=== PATIENT | male | born 1950 | race Caucasian/White ===

== ENCOUNTER → 2020-06-19 | Outpatient (CLI) | payer MEDICARE ==
[2020-06-19 13:33] LABS: HGB 16.5 gm/dL (13.0-17.5); MCH 30.7 pg (25.0-35.0); MCHC 33.7 g/dL (31.0-37.0); MCV 91.1 fL (80.0-100.0); Mean Platelet Volume 6.6; Platelet Count 291 k/uL (150-450); RBC 5.38 m/uL (4.30-5.90); RDW 13.4 % (11.5-15.5); WBC 10.8 k/uL (3.8-10.6)
[2020-06-19 13:45] LABS: Potassium 5.9 mmol/L (3.5-5.1)
== END | disposition home or self-care (01) ==
LOC: LABPAT 11:57
PROVIDERS: ATTEND Surgery
DX: Z01.818 Encounter for other preprocedural examination (principal); C18.9 Malignant neoplasm of colon, unspecified
CPT/HCPCS: 36415; 80051; 85027; 86850; 86900; 86901; 93005

== ENCOUNTER 2020-06-26 10:36 | Inpatient (IN) | payer MEDICARE ==
[~2020-06-26 10:36] MED LIST: ACETAMINOPHEN TAB 500 MG TAB PO PRN; ALVIMOPAN 12 MG CAPSULE PO PRN; DEXAMETHASONE SOD PHOSPHATE 4 MG/ML 1 ML VIAL IV ONE; HEPARIN SODIUM,PORCINE 5,000 UNIT/ML 1 ML VIAL SQ PRN; HYDROmorphone 0.5 MG/0.5 ML SYRINGE IVP PRN; LIDOCAINE 1% (10MG/ML) FOR IV START INTRADERMA PRN; ONDANSETRON 4 MG/2 ML VIAL IVP ONE; metroNIDAZOLE-NS PMX 500 MG in SALINE 1 100ML.BAG IVPB PRN
[2020-06-26] MEDS: LACTATED RINGERS 1,000 ML IV SCH (11:47)
[2020-06-26 12:11] LABS: Prothrombin Time 10.6 sec (9.0-12.0)
[2020-06-26] MEDS ORDERED: MIDAZOLAM 2 MG/2 ML VIAL IV ONE (12:14)
--- NOTE | 2020-06-26 12:34 | P.ANPRN ---
Procedure Note - Anesthesia - Epidural/Spinal Epidural Continuous Time Out Performed: Yes Date of Procedure: 06/26/20 Procedure Start Time: 12:14 Procedure Stop Time: :21 Location of Patient: PreOp Indication: Acute Post-Operative Pain, Requested by Surgeon Sedation Type: Sedate with meaningful contact maintained Preparation: Sterile Dressing Position: Sitting Catheter: Indwelling Needle Guage: 18 Injectate: Test Dose Lidocaine1.5% w/1:200,000 epi Blood Aspirated: No Pain Paresthesia on Injection Noted: No Events: Uneventful and Well Tolerated (test dose 3cc given no adverse event noted)
[2020-06-26] MEDS ORDERED: LIDOCAINE 1% INJ 10MG/ML (20 ML MDV) ONE (13:09)
[2020-06-26] MEDS ORDERED: SUCCINYLCHOLINE CHLORIDE 100 MG/5 ML SYR IV ONE (13:09)
[2020-06-26] MEDS ORDERED: fentaNYL (PF) 50 MCG/ML 2 ML AMP ONE (13:09)
[2020-06-26] MEDS ORDERED: ROCURONIUM 10 MG/ML (10 ML VIAL) IV ONE (13:09)
[2020-06-26] MEDS ORDERED: PHENYLEPHRINE 10 MG/ML VIAL ONE (13:09)
[2020-06-26] MEDS ORDERED: MIDAZOLAM 2 MG/2 ML VIAL ONE (13:09)
[2020-06-26] MEDS ORDERED: GLYCOPYRROLATE 0.2 MG/ML 2 ML VIAL ONE (13:09)
[2020-06-26] MEDS ORDERED: PROPOFOL 10 MG/ML 20 ML VIAL IV ONE (13:09)
[2020-06-26] MEDS ORDERED: NEOSTIGMINE 1 MG/ML 10 ML VIAL ONE (13:09)
[2020-06-26] MEDS ORDERED: NALOXONE 0.4 MG/ML 1 ML VIAL IV PRN (13:46)
[2020-06-26] MEDS ORDERED: LACTATED RINGERS 1,000 ML IV ONE ×4 (13:53→15:54)
[2020-06-26] MEDS ORDERED: ONDANSETRON 4 MG/2 ML VIAL IVP PRN (16:47)
[2020-06-26] MEDS ORDERED: HYDROmorphone 1 MG/ML 1 ML SYRINGE IVP PRN (16:47)
[2020-06-26] MEDS ORDERED: METOCLOPRAMIDE 5 MG/ML 2 ML VIAL IVP PRN (16:47)
--- NOTE | 2020-06-26 16:58 | P.OP ---
Date of Procedure: 06/26/20 Procedure(s) Performed: PREOPERATIVE DIAGNOSIS: Descending colon cancer POSTOPERATIVE DIAGNOSIS: Same PROCEDURE: Partial colectomy, mobilization splenic flexure, partial omentectomy SURGEON: Veronica EBL: 50 mL ANESTHESIA: General COMPLICATIONS: None OPERATIVE PROCEDURE: Patient placed on the operative table in the supine position. The patient was placed under general anesthesia. The patient was then placed in lithotomy. The abdomen was prepped and draped in usual sterile fashion. A vertical incision was made extending from the infraumbilical location to the subxiphoid location. The fascia was divided as well. The Bookwalter retractor was utilized. There was a large mass involving the descending colon that was densely adherent to the lateral abdominal wall. We started by mobilizing the sigmoid colon proximally. The white line of Toldt was divided. The course of the left ureter was identified and preserved. Once we came closer to the mass I switched and started to mobilize the splenic flexure. The splenic flexure was fully mobilized using electrocautery and the LigaSure device. The patient's colon proximally was slightly distended. This appeared consistent with the tight nature of this malignancy when identified on endoscopy. The visualized small bowel and proximal colon appeared normal. The liver was free of any evident metastasis. As we mobilized the colon more medially we identified that the cancer itself was penetrating into the pericolonic tissues specifically the peritoneum along the left gutter. I took a portion of the peritoneum off with the mass. I used clips to identify that area in the event that future radiation therapy was considered. As we were mobil izing the bowel medially a defect in the lateral wall of the colon where the cancer was was identified. There was some spillage of bilious diarrhea in that area that was quickly evacuated. The cancer itself appeared to be perforating into the retroperitoneum at that location. He was difficult to see with the inflammatory response the course of the proximal and mid ureter but I felt that this was likely deep to the inflammatory site. Once we had mobilized the bowel fully medially the mesentery was divided using both the LigaSure device and [address]. No bleeding was seen. We had adequate length for the 2 portions of the bowel to meet end-to-end. I decided to create a end-to-end anastomosis using a EEA stapler. The EEA anvil was placed into the proximal sigmoid colon after a small colotomy was made. A 2 cm piece of the colon was then excised using a linear 75 stapler and the anvil was brought out adjacent to the staple line. A 3-0 GI silk pursestring suture was used around the anvil. I then made a colotomy in the colon 15 cm proximal to the proximal staple line. This colotomy was made longitudinally. This was later closed transversely using a TX 60 device. The TX 60 stapler line was fully imbricated using interrupted 3-0 GI silk sutures. The stapler was brought out adjacent to the staple line and the 2 portions of the bowel were connected to one another end-to-end. The stapler was tightened and subsequent fired. The anastomosis was free of any ischemic changes and there was no tension seen. A few 3-0 GI silk Lambert sutures were used to imbricate the EEA staple line. Further irrigation took place with no evidence of bleeding or spillage. The mesenteric defect was too large to close. The midline fascia was then reapproximated using 3 separate double-stranded #1 PDS sutures. The subcutaneous tissues were closed using 3-0 Vicryl sutures. The skin was then closed using elsy. Sterile dressings were then applied. DISPOSITION: Stable to recovery room
[2020-06-26] MEDS: FAMOTIDINE 20 MG/2 ML VIAL IV SCH (20:38)
[2020-06-26] MEDS: D5-0.45% NACL WITH KCL 20MEQ/L 1,000 ML IV SCH (20:38)
[2020-06-26] MEDS: HEPARIN SODIUM,PORCINE 5,000 UNIT/ML 1 ML VIAL SQ SCH (20:38)
[2020-06-27] MEDS: D5-0.45% NACL WITH KCL 20MEQ/L 1,000 ML IV SCH ×3 (04:58→19:49)
[2020-06-27 08:01] LABS: Basophils % (A) 0 %; Eosinophils % (A) 0 %; HCT 42.5 % (39.0-53.0); HGB 14.5 gm/dL (13.0-17.5); Lymphocytes # (A) 1.2 k/uL (1.0-4.8); Lymphocytes % (A) 10 %; MCH 30.7 pg (25.0-35.0); MCHC 34.1 g/dL (31.0-37.0); MCV 90.2 fL (80.0-100.0); Mean Platelet Volume 6.9; Monocytes # (A) 0.9 k/uL (0-1.0); Monocytes % (A) 8 %; Neutrophils # (A) 9.2 k/uL (1.3-7.7); Neutrophils % (A) 80 %; Platelet Count 210 k/uL (150-450); RBC 4.71 m/uL (4.30-5.90); RDW 13.3 % (11.5-15.5); WBC 11.4 k/uL (3.8-10.6)
--- NOTE | 2020-06-27 08:03 | P.PN ---
Progress Note - Text Progress Note Date: 06/27/20 [phone] Anesthesia Postop day 1 Status post partial colectomy with epidural Day 2 Patient seen and examined. Doing well without complaint. VAS 0 out of 10, 5 out of 10 with cough. No nausea vomiting or pruritus. Ropivacaine 0.1% with Dilaudid 20 mcg/mL at 6 mL an hour. Afebrile Objective: Vital signs reviewed Lungs: Good chest excursion Abdomen: Appears nondistended Other: Epidural Site Intact without induration. Dressing intact Neuro: No apparent motor block. Sensory within normal limits. Assessment: Status post partial colectomy postop day 1 Plan: Continue current care with your medical management. Anticipate reevaluation tomorrow. Heparin subcu every 12. No other anticoagulant
--- NOTE | 2020-06-27 09:32 | P.CONS ---
History of Present Illness - History of Present Illness This is a pleasant 69 years old male with past medical history of coronary a rtery disease, colon cancer, history of bladder cancers and 2013. He is a patient of Dr. Nunez at [facility] Patient had recently diagnosed with ascending colon cancer on CAT scan of the abdomen. Recent Colonoscopy was consistent with 60 cm malignant-appearing mass. Biopsy was positive for invasive a denocarcinoma. Patient underwent partial colectomy by Dr. finley yesterday. Today is postop day #1. Patient is with expected pain at the surgical site, no bowel movement or gas yet as she has recent surgery. No nausea vomiting, no fever. He has a Salamanca catheter is placed. Patient is aware of his diagnosis of cancer, I told him he needs to see a cancer doctor and oncologist and he agrees. He states that he smokes a pack that last him 3-4 days, patient is counseled to quit however he declined nicotine patch. No alcohol or illicit drugs Vitas looks stable. Recent lap one week ago showing normal sodium 141, potassium 4.4 and chloride 107, carbon dioxide 26. WBC is 10.8 K, hemoglobin normal 16.5 as well as platelets at 2091K. Review of Systems CONSTITUTIONAL: No fever, no malaise, no fatigue. HEENT: No recent visual problems or hearing problems. Denied any sore throat. CARDIOVASCULAR: No orthopnea, PND, no palpitations, no syncope. PULMONARY: No shortness of breath, no cough, no hemoptysis. GASTROINTESTINAL: No diarrhea, no nausea, no vomiting. Normoactive bowel sounds. NEUROLOGICAL: No headaches, no weakness, no numbness. HEMATOLOGICAL: Denies any bleeding or petechiae. GENITOURINARY: Denies any burning micturition, frequency, or urgency. MUSCULOSKELETAL/RHEUMATOLOGICAL: Denies any joint pain, swelling, or any muscle pain. ENDOCRINE: Denies any polyuria or polydipsia. Past Medical History Past Medical History: Coronary Artery Disease (CAD), Cancer Additional Past Medical History / Comment(s): colon CA,hx bladder CA-no radiation-chemo instilled into bladder-2012 approx History of Any Multi-Drug Resistant Organisms: None Reported Past Surgical History: Bladder Surgery, Heart Catheterization Additional Past Surgical History / Comment(s): CABG 2017-5 vessel Past Anesthesia/Blood Transfusion Reactions: No Reported Reaction Additional Past Anesthesia/Blood Transfusion Reaction / Comm: no known hx blood transfusion Smoking Status: Current every day smoker - Past Family History Mother Family Medical History: Cancer Additional Family Medical History / Comment(s): breast CA Medications and Allergies Home Medications Medication Instructions Recorded Confirmed Type Aspirin 81 mg PO DAILY 06/23/20 06/26/20 History Clopidogrel [Plavix] 75 mg PO DAILY 06/23/20 06/26/20 History Lisinopril [Prinivil] 5 mg PO QAM 06/23/20 06/26/20 History Multivitamins, Thera [Multivitamin 1 tab PO DAILY 06/23/20 06/26/20 History (formulary)] [place]-3/Dha/Epa/Fish Oil [Fish Oil 1 each PO DAILY 06/23/20 06/26/20 History 500 mg Softgel] Rosuvastatin Calcium [Crestor] 20 mg PO DAILY 06/23/20 06/26/20 History carvediloL [Coreg] 3.125 mg PO QAM 06/23/20 06/26/20 History Allergies Allergy/AdvReac Type Severity Reaction Status Date / Time No Known Allergies Allergy Verified 06/26/20 11:15 Physical Exam Vitals: Vital Signs Temp Pulse Resp BP BP Pulse Ox 06/27/20 01:59 99.1 F 101 H 20 95/61 93 L 06/26/20 21:01 97.6 F 88 16 103/66 97 06/26/20 19:58 96 06/26/20 18:00 86 18 110/50 97 06/26/20 17:30 60 16 109/59 94 L 06/26/20 17:15 86 16 108/55 99 06/26/20 17:00 88 16 115/59 99 06/26/20 16:45 97.5 F L 90 16 118/56 98 06/26/20 12:26 79 16 96/52 96 06/26/20 11:46 97.5 F L 86 16 123/66 95 Intake and Output 06/26/20 06/27/20 06/27/20 22:59 06:59 14:59 Intake Total 800 Output Total 170 650 Balance 630 -650 Intake: IV 800 Output: Urine 120 650 Estimated Blood Loss 50 -GENERAL: The patient is alert and oriented x3, not in any acute distress. Obese HEENT: Pupils are round and equally reacting to light. EOMI. No scleral icterus. No conjunctival pallor. Normocephalic, atraumatic. No pharyngeal erythema. No thyromegaly. CARDIOVASCULAR: S1 and S2 present. No murmurs, rubs, or gallops. PULMONARY: Chest is clear to auscultation, no wheezing or crackles. -ABDOMEN: Soft, nontender, nondistended, normoactive bowel sounds. No palpable organomegaly. Surgical wound with dressing is in place, midline vertical and one in the left lower quadrant. No colostomy bag. Rest of exam is deferred to surgery team MUSCULOSKELETAL: No joint swelling or deformity. EXTREMITIES: No cyanosis, clubbing, or pedal edema. NEUROLOGICAL: Gross neurological examination did not reveal any focal deficits. SKIN: No rashes. No petechiae Results CBC & Chem 7: 06/27/20 07:12 06/26/20 11:37 Assessment and Plan Assessment: Recent diagnosis of descending colon cancer, status post partial colectomy on 06/2120 Nicotine dependence Obesity with BMI of 32 History of coronary artery disease History of bladder cancer Plan: This is a pleasant 69 years old male with recent diagnosis of invasive adenocarcinoma of the descending colon status post partial colectomy. Surgery primary team Th are managing his postop care and pain management. Continue with postop care with pain management and 50 prophylaxis. Encourage incentive spirometry. Continue with gentle hydration We recommend that patient follow up with oncologist as inpatient or close outpatient follow-up, we lifted this arrangements for the primary surgical team Labs and medication were reviewed.. Continue same treatment. Continue with symptomatic treatment. Resume home medication. Monitor lytes and vitals. DVT and GI prophylaxis. Further recommendations depends on the clinical course of the patient DVT prophylaxis: Subcutaneous heparin GI Prophylaxis: Pepcid Prognosis is guarded thank you for consulting us
[2020-06-27] MEDS: HEPARIN SODIUM,PORCINE 5,000 UNIT/ML 1 ML VIAL SQ SCH ×3 (10:16→23:35)
[2020-06-27] MEDS: ALVIMOPAN 12 MG CAPSULE PO SCH ×2 (10:16→20:05)
[2020-06-27] MEDS: FAMOTIDINE 20 MG/2 ML VIAL IV SCH ×2 (10:17→20:06)
[2020-06-27 11:16] LABS: Anion Gap 3.5 mmol/L (4.00-12.00); Calcium 8.8 mg/dL (8.7-10.3); Carbon Dioxide 25.5 mmol/L (21.6-31.8); Non-African American GFR(CKD) 75.9 (60.0-200.0); Potassium 5.5 mmol/L (3.5-5.5)
[2020-06-27] MEDS: LACTATED RINGERS 1,000 ML IV SCH (11:46)
--- NOTE | 2020-06-27 12:40 | P.PN ---
<Simran Garcia - Last Filed: 06/27/20 12:27> Subjective Progress Note Date: 06/27/20 CHIEF COMPLAINT: Descending colon cancer HISTORY OF PRESENT ILLNESS: Patient is status post partial colectomy, mobilization splenic flexure and partial omentectomy for descending colon cancer. Patient is lying in bed comfortably. He reports that his pain is controlled with epidural. He does rate his pain 5 out of 10. He denies any nausea or vomiting. Denies any flatus or BM. He is afebrile. WBC 11.4 PHYSICAL EXAM: VITAL SIGNS: Reviewed. GENERAL: Well-developed in no acute distress. HEENT: No sclera icterus. Extraocular movements grossly intact. Moist buccal mucosa. Head is atraumatic, normocephalic. ABDOMEN: Soft. Nondistended. Dressing clean dry and intact. Abdominal binder in place. DEANGELO drain serosanguineous fluid NEUROLOGIC: Alert and oriented. Cranial nerves II through XII grossly intact. ASSESSMENT: 1. Descending colon cancer status post status post partial colectomy, mobilization splenic flexure and partial omentectomy PLAN: -Continue epidural for pain -Keep patient nothing by mouth -Continue IV fluids -Encouraged patient to use incentive spirometer -GI prophylaxis Pepcid and DVT prophylaxis subcu heparin Physician Perforator Operator note has been reviewed by physician. Signing provider agrees with the documented findings, assessment, and plan of care. Objective - Vital Signs Vital signs: Vital Signs Temp 98.3 F 06/27/20 11:52 Pulse 98 06/27/20 11:52 Resp 17 06/27/20 11:52 BP 126/75 06/27/20 11:52 Pulse Ox 91 L 06/27/20 11:52 Intake & Output 06/26/20 06/27/20 06/27/20 18:59 06:59 18:59 Intake Total 3950 Output Total 170 650 75 Balance 3780 -650 -75 Weight 92.7 kg Intake: IV 3950 Output: Drainage 75 Abdomen 75 Urine 120 650 Estimated Blood Loss 50 Other: Voiding Method Indwelling Catheter - Labs CBC & Chem 7: 06/27/20 07:12 06/27/20 07:12 Labs: Abnormal Lab Results - Last 24 Hours (Table) 06/27/20 06/27/20 Range/Units 07:12 07:12 WBC 11.4 H (3.8-10.6) k/uL Neutrophils # 9.2 H (1.3-7.7) k/uL Anion Gap 3.50 L (4.00-12.00) mmol/L Glucose 119 H (70-110) mg/dL <Solomon Martin - Last Filed: 06/27/20 13:55> Subjective As above. Patient doing fairly well today. Complaining of mild pain. Labs noted. Patient denies nausea or vomiting. Good urine output. DEANGELO drain serosanguineous. Continue clear liquids for now. Gradually increase activity. Keep Oley an epidural for now. Objective - Vital Signs Vital signs: Vital Signs Temp 98.3 F 06/27/20 11:52 Pulse 98 06/27/20 11:52 Resp 17 06/27/20 11:52 BP 126/75 06/27/20 11:52 Pulse Ox 91 L 06/27/20 11:52 Intake & Output 06/26/20 06/27/20 06/27/20 18:59 06:59 18:59 Intake Total 3950 240 Output Total 170 650 75 Balance 3780 -650 165 Weight 92.7 kg Intake: IV 3950 Oral 240 Output: Drainage 75 Abdomen 75 Urine 120 650 Estimated Blood Loss 50 Other: Voiding Method Indwelling Catheter - Labs CBC & Chem 7: 06/27/20 07:12 06/27/20 07:12 Labs: Abnormal Lab Results - Last 24 Hours (Table) 06/27/20 06/27/20 Range/Units 07:12 07:12 WBC 11.4 H (3.8-10.6) k/uL Neutrophils # 9.2 H (1.3-7.7) k/uL Anion Gap 3.50 L (4.00-12.00) mmol/L Glucose 119 H (70-110) mg/dL
[2020-06-27] MEDS ORDERED: ACETAMINOPHEN TAB 325 MG TAB PO PRN (20:44)
[2020-06-27] MEDS: ROPIVACAINE 250 MG, HYDROMORPHONE (PF) 5 MG in SODIUM CHLORIDE 0.9% 200 ML EPIDURAL PRN (22:46)
[2020-06-28] MEDS: D5-0.45% NACL WITH KCL 20MEQ/L 1,000 ML IV SCH ×3 (03:58→23:21)
[2020-06-28 04:54] LABS: Appearance,Urine Clear (Clear); Bilirubin,Urine Negative (Negative); Blood,Urine Negative (Negative); Color,Urine Light Yellow; Glucose,Urine (UA) Negative (Negative); Ketones,Urine Negative (Negative); Leukocyte Esterase,Urine Negative (Negative); Nitrite,Urine Negative (Negative); PH, Urine 6.5 (5.0-8.0); Protein,Urine Negative (Negative); Specific Gravity,Urine 1.005 (1.001-1.035); Urobilinogen,Urine <2.0 mg/dL (<2.0)
[2020-06-28 06:31] LABS: Basophils % (A) 0 %; Eosinophils # (A) 0.3 k/uL (0-0.7); Eosinophils % (A) 3 %; HCT 40.7 % (39.0-53.0); HGB 13.6 gm/dL (13.0-17.5); Lymphocytes # (A) 0.9 k/uL (1.0-4.8); Lymphocytes % (A) 9 %; MCH 30.3 pg (25.0-35.0); MCHC 33.5 g/dL (31.0-37.0); MCV 90.5 fL (80.0-100.0); Mean Platelet Volume 6.9; Monocytes # (A) 0.6 k/uL (0-1.0); Monocytes % (A) 6 %; Neutrophils # (A) 7.6 k/uL (1.3-7.7); Neutrophils % (A) 80 %; Platelet Count 193 k/uL (150-450); RDW 13.7 % (11.5-15.5); WBC 9.6 k/uL (3.8-10.6)
--- NOTE | 2020-06-28 07:57 | XR ---
EXAMINATION TYPE: XR chest 1V DATE OF EXAM: 06/28/2020 COMPARISON: None INDICATION: Short of breath TECHNIQUE: Single frontal view of the chest is obtained. FINDINGS: The heart size is normal. The pulmonary vasculature is normal. Some minimal infiltrate may be at the left base. Correlate for subsegmental atelectasis. Atypical pne umonia could be considered. IMPRESSION: 1. Minimal left basilar infiltrate. Correlate for Atelectasis or atypical pneumonia
[2020-06-28] MEDS: LACTATED RINGERS 1,000 ML IV SCH (09:25)
[2020-06-28] MEDS: HEPARIN SODIUM,PORCINE 5,000 UNIT/ML 1 ML VIAL SQ SCH ×3 (09:27→23:21)
[2020-06-28] MEDS: ALVIMOPAN 12 MG CAPSULE PO SCH ×2 (09:27→20:22)
[2020-06-28] MEDS: FAMOTIDINE 20 MG/2 ML VIAL IV SCH ×2 (09:27→20:21)
--- NOTE | 2020-06-28 09:44 | P.PN ---
Subjective This is a pleasant 69 years old male with past medical history of coronary artery disease, colon cancer, history of bladder cancers and 2013. He is a patient of Dr. Nunez at [facility] Patient had recently diagnosed with ascending colon cancer on CAT scan of the abdomen. Recent Colonoscopy was consistent with 60 cm malignant-appearing mass. Biopsy was positive for invasive adenocarcinoma. Patient underwent partial colectomy by Dr. finley yesterday. Today is postop day #1. Patient is with expected pain at the surgical site, no bowel movement or gas yet as she has recent surgery. No nausea vomiting, no fever. He has a Salamanca catheter is placed. Patient is aware of his diagnosis of cancer, I told him he needs to see a cancer doctor and oncologist and he agrees. He states that he smokes a pack that last him 3-4 days, patient is counseled to quit however he declined nicotine patch. No alcohol or illicit drugs Vitas looks stable. Recent lap one week ago showing normal sodium 141, potassium 4.4 and chloride 107, carbon dioxide 26. WBC is 10.8 K, hemoglobin normal 16.5 as well as platelets at 2091K. 06/28/2020 Patient is awake and alert, he has this abdominal pain, he feels himself better. However he is developing fever of 101.8, he denies any diarrhea actually he did not have bowel movement or passing gases. He has no vomiting and he is eating well. No urinary complaints and he has a Salamanca catheter. However he's been complaining of from cough and phlegm which is green in color since admission. But no chest pain. No significant breathing difficulty. CBC is stable from today, he had leukocytosis of 11.4 yesterday came back to normal at 9.6 today. UA today is negative. Chest x-ray: Minimal left basilar infiltrate. Correlate for atelectasis or atypical pneumonia Patient is already started on Rocephin. We will check a pro-consult on in, sputum culture Review of System CONSTITUTIONAL: No fever, no malaise, no fatigue. HEENT: No recent visual problems or hearing problems. Denied any sore throat. CARDIOVASCULAR: No orthopnea, PND, no palpitations, no syncope. PULMONARY: No shortness of breath, no cough, no hemoptysis. GASTROINTESTINAL: No diarrhea, no nausea, no vomiting. Normoactive bowel sounds. Active Medications Generic Name Dose Route Start Last Admin Trade Name Freq PRN Reason Stop Dose Admin Acetaminophen 650 mg 06/27/20 20:44 06/27/20 22:04 Acetaminophen Tab 325 Mg Tab PO 650 mg Q4HR PRN Administration Fever and/ or Pain Alvimopan 12 mg 06/27/20 09:00 06/28/20 09:27 Alvimopan 12 Mg Capsule PO 07/03/20 21:01 12 mg BID RAQUEL Administration Famotidine 20 mg 06/26/20 21:00 06/28/20 09:27 Famotidine 20 Mg/2 Ml Vial IV 20 mg BID RAQUEL Administration Heparin Sodium (Porcine) 5,000 unit 06/27/20 00:00 06/28/20 09:27 Heparin Sodium,Porcine 5,000 Unit/Ml 1 Ml Vial SQ 5,000 unit Q8HR RAQUEL Administration Hydromorphone HCl 1 mg 06/26/20 16:47 Hydromorphone 1 Mg/Ml 1 Ml Syringe IVP Q3HR PRN Severe Pain Lactated Ringer's 1,000 mls @ 20 mls/hr 06/26/20 06:54 06/28/20 09:25 Lactated Ringers IV Not Given .Q24H RAQUEL Ropivacaine 250 mg/ 250 mls @ 0 mls/hr 06/26/20 14:15 06/27/20 22:46 Hydromorphone HCl 5 mg/ Sodium EPIDURAL 6 mls/hr Chloride .Q0M PRN Administration Pain Control Protocol Per Protocol Potassium Chloride/Dextrose/Sod Cl 1,000 mls @ 125 mls/hr 06/26/20 18:30 06/28/20 03:58 D5%-1/2ns-Kcl 20 Meq/L Iv Solution IV 125 mls/hr .Q8H RAQUEL Administration Ceftriaxone Sodium 2 gm/ 50 mls @ 100 mls/hr 06/27/20 21:00 06/27/20 22:01 Sodium Chloride IVPB 100 mls/hr Q24H RAQUEL Administration Lidocaine HCl 0.1 ml 06/26/20 06:54 Lidocaine 1% (10mg/Ml) For Iv Start INTRADERMA PER PROTOCOL PRN IV Start Metoclopramide HCl 10 mg 06/26/20 16:47 Metoclopramide 5 Mg/Ml 2 Ml Vial IVP Q6HR PRN Nausea and Vomiting Naloxone HCl 0.2 mg 06/26/20 13:46 Naloxone 0.4 Mg/Ml 1 Ml Vial IV Q2M PRN Opioid Reversal Ondansetron HCl 4 mg 06/26/20 16:47 Ondansetron 4 Mg/2 Ml Vial IVP Q8HR PRN Nausea And Vomiting Objective - Vital Signs Vital signs: Vital Signs Temp 99.5 F 06/28/20 05:00 Pulse 88 06/28/20 05:00 Resp 20 06/28/20 05:00 BP 121/71 06/28/20 05:00 Pulse Ox 93 L 06/28/20 05:00 Intake & Output 06/27/20 06/28/20 06/28/20 18:59 06:59 18:59 Intake Total 240 450 Output Total 1335 2475 Balance -1094 Intake: Oral 240 450 Output: Drainage 135 125 Abdomen 135 125 Urine 1200 2350 Uretheral (Salamanca) 900 2000 Other: Voiding Method Indwelling Catheter Indwelling Catheter - Exam -GENERAL: The patient is alert and oriented x3, not in any acute distress. Obese HEENT: Pupils are round and equally reacting to light. EOMI. No scleral icterus. No conjunctival pallor. Normocephalic, atraumatic. No pharyngeal erythema. No thyromegaly. CARDIOVASCULAR: S1 and S2 present. No murmurs, rubs, or gallops. PULMONARY: Chest is clear to auscultation, no wheezing or crackles. -ABDOMEN: Soft, nontender, nondistended, normoactive bowel sounds. No palpable organomegaly. Surgical wound with dressing is in place, midline vertical and one in the left lower quadrant. No colostomy bag. Rest of exam is deferred to surgery team MUSCULOSKELETAL: No joint swelling or deformity. EXTREMITIES: No cyanosis, clubbing, or pedal edema. NEUROLOGICAL: Gross neurological examination did not reveal any focal deficits. SKIN: No rashes. No petechiae - Labs CBC & Chem 7: 06/28/20 05:48 06/27/20 07:12 Labs: Abnormal Lab Results - Last 24 Hours (Table) 06/27/20 06/28/20 Range/Units 07:12 05:48 Lymphocytes # 0.9 L (1.0-4.8) k/uL Anion Gap 3.50 L (4.00-12.00) mmol/L Glucose 119 H (70-110) mg/dL Assessment and Plan Assessment: Recent diagnosis of descending colon cancer, status post partial colectomy on 2120 left lower lobe pneumonia Nicotine dependence Obesity with BMI of 32 History of coronary artery disease History of bladder cancer Plan: This is a pleasant 69 years old male with recent diagnosis of invasive adenocarcinoma of the descending colon status post partial colectomy. Surgery primary team Also patient developing left pneumonia, continue with Rocephin. Check sputum culture Th are managing his postop care and pain management. Continue with postop care with pain management and 50 prophylaxis. Encourage incentive spirometry. Continue with gentle hydration We recommend that patient follow up with oncologist as inpatient or close o utpatient follow-up, we lifted this arrangements for the primary surgical team Labs and medication were reviewed.. Continue same treatment. Continue with symptomatic treatment. Resume home medication. Monitor lytes and vitals. DVT and GI prophylaxis. Further recommendations depends on the clinical course of the patient DVT prophylaxis: Subcutaneous heparin GI Prophylaxis: Pepcid Prognosis is guarded thank you for consulting us
[2020-06-28 09:56] LABS: African American GFR (CKD) 99.9 (60.0-200.0); Anion Gap 1.8 mmol/L (4.00-12.00); Calcium 8.6 mg/dL (8.7-10.3); Carbon Dioxide 22.2 mmol/L (21.6-31.8); Non-African American GFR(CKD) 86.2 (60.0-200.0); Potassium 4.2 mmol/L (3.5-5.5)
--- NOTE | 2020-06-28 11:17 | P.PN ---
Subjective Progress Note Date: 06/28/20 Principal diagnosis: Descending colon mass Patient had a fever last night. His pain however is improved. Chest x-ray shows left-sided atelectasis. White blood cell count normal. No flatus thus far. No nausea or vomiting. Epidural remains in place. Objective - Vital Signs Vital signs: Vital Signs Temp 99.5 F 06/28/20 05:00 Pulse 88 06/28/20 05:00 Resp 20 06/28/20 05:00 BP 121/71 06/28/20 05:00 Pulse Ox 93 L 06/28/20 05:00 Intake & Output 06/27/20 06/28/20 06/28/20 18:59 06:59 18:59 Intake Total 240 450 Output Total 1335 2475 40 Balance -1094 Intake: Oral 240 450 Output: Drainage 135 125 40 Abdomen 135 125 40 Urine 1200 2350 Uretheral (Salamanca) 900 2000 Other: Voiding Method Indwelling Catheter Indwelling Catheter - Exam Abdomen: Soft, nondistended, incision clean and dry, minimal tenderness, DEANGELO serosanguineous - Labs CBC & Chem 7: 06/28/20 05:48 06/28/20 05:48 Labs: Abnormal Lab Results - Last 24 Hours (Table) 06/27/20 06/28/20 06/28/20 Range/Units 07:12 05:48 05:48 Lymphocytes # 0.9 L (1.0-4.8) k/uL Chloride 113 H (96-109) mmol/L Anion Gap 3.50 L 1.80 L (4.00-12.00) mmol/L BUN/Creatinine Ratio 10.00 L (12.00-20.00) Ratio Glucose 119 H 115 H (70-110) mg/dL Calcium 8.6 L (8.7-10.3) mg/dL Procalcitonin (0.02-0.09) ng/mL 06/28/20 Range/Units 05:48 Lymphocytes # (1.0-4.8) k/uL Chloride (96-109) mmol/L Anion Gap (4.00-12.00) mmol/L BUN/Creatinine Ratio (12.00-20.00) Ratio Glucose (70-110) mg/dL Calcium (8.7-10.3) mg/dL Procalcitonin 0.64 H (0.02-0.09) ng/mL Assessment and Plan (1) Colonic mass Narrative/Plan: Patient doing fairly well. Fever likely related to atelectasis. Continue incentive spirometry. Recheck labs tomorrow. Continue clear liquids. Increase activity. Remove epidural and Salamanca tomorrow. Current Visit: Yes Status: Acute Code(s): K63.89 - OTHER SPECIFIED DISEASES OF INTESTINE SNOMED Code(s): 747407972
[2020-06-28] MEDS: ROPIVACAINE 250 MG, HYDROMORPHONE (PF) 5 MG in SODIUM CHLORIDE 0.9% 200 ML EPIDURAL PRN (20:31)
--- NOTE | 2020-06-28 20:36 | P.PN ---
Progress Note - Text 06/28/20 0453 69-year-old male status post exploratory lap, patient has an epidural catheter for postop pain control the solution running at 6 mL an hour with a VAS of 4. No complains of nausea vomiting, no complaints of sensory or motor deficit. Dressing clean dry and intact plan to continue epidural infusion
[2020-06-29] MEDS: D5-0.45% NACL WITH KCL 20MEQ/L 1,000 ML IV SCH ×3 (03:47→20:29)
[2020-06-29 06:51] LABS: Basophils % (A) 0 %; Eosinophils # (A) 0.4 k/uL (0-0.7); Eosinophils % (A) 5 %; HCT 40.5 % (39.0-53.0); HGB 13.8 gm/dL (13.0-17.5); Lymphocytes # (A) 0.9 k/uL (1.0-4.8); Lymphocytes % (A) 11 %; MCH 30.2 pg (25.0-35.0); MCV 88.9 fL (80.0-100.0); Monocytes # (A) 0.5 k/uL (0-1.0); Monocytes % (A) 6 %; Neutrophils # (A) 6.7 k/uL (1.3-7.7); Neutrophils % (A) 77 %; Platelet Count 199 k/uL (150-450); RBC 4.56 m/uL (4.30-5.90); RDW 13.2 % (11.5-15.5); WBC 8.7 k/uL (3.8-10.6)
[2020-06-29] MEDS: LACTATED RINGERS 1,000 ML IV SCH (08:34)
[2020-06-29] MEDS: HEPARIN SODIUM,PORCINE 5,000 UNIT/ML 1 ML VIAL SQ SCH ×3 (08:38→23:14)
[2020-06-29] MEDS: FAMOTIDINE 20 MG/2 ML VIAL IV SCH ×2 (08:38→20:29)
[2020-06-29] MEDS: ALVIMOPAN 12 MG CAPSULE PO SCH ×2 (08:38→20:29)
[2020-06-29 08:56] LABS: African American GFR (CKD) 99.9 (60.0-200.0); Anion Gap 7.2 mmol/L (4.00-12.00); Calcium 8.6 mg/dL (8.7-10.3); Carbon Dioxide 25.8 mmol/L (21.6-31.8); Non-African American GFR(CKD) 86.2 (60.0-200.0); Potassium 4.3 mmol/L (3.5-5.5)
--- NOTE | 2020-06-29 09:28 | P.PN ---
Subjective This is a pleasant 69 years old male with past medical history of coronary artery disease, colon cancer, history of bladder cancers and 2013. He is a patient of Dr. Nunez at [facility] Patient had recently diagnosed with ascending colon cancer on CAT scan of the abdomen. Recent Colonoscopy was consistent with 60 cm malignant-appearing mass. Biopsy was positive for invasive adenocarcinoma. Patient underwent partial colectomy by Dr. finley yesterday. Today is postop day #1. Patient is with expected pain at the surgical site, no bowel movement or gas yet as she has recent surgery. No nausea vomiting, no fever. He has a [place] catheter is placed. Patient is aware of his diagnosis of cancer, I told him he needs to see a cancer doctor and oncologist and he agrees. He states that he smokes a pack that last him 3-4 days, patient is counseled to quit however he declined nicotine patch. No alcohol or illicit drugs Vitas looks stable. Recent lap one week ago showing normal sodium 141, potassium 4.4 and chloride 107, carbon dioxide 26. WBC is 10.8 K, hemoglobin normal 16.5 as well as platelets at 2091K. 06/28/2020 Patient is awake and alert, he has this abdominal pain, he feels himself better. However he is developing fever of 101.8, he denies any diarrhea actually he did not have bowel movement or passing gases. He has no vomiting and he is eating well. No urinary complaints and he has a [place] catheter. However he's been complaining of from cough and phlegm which is green in color since admission. But no chest pain. No significant breathing difficulty. CBC is stable from today, he had leukocytosis of 11.4 yesterday came back to normal at 9.6 today. UA today is negative. Chest x-ray: Minimal left basilar infiltrate. Correlate for atelectasis or atypical pneumonia Patient is already started on Rocephin. We will check a pro-consult on in, sputum culture 06/29/2020 This is a pleasant 69 years old male who presents with ascending colon cancer status post partial colectomy. Postoperatively patient was developing fever with chest x-ray was suspicious for left lower lobe pneumonia. Patient was started on ceftriaxone as it was treated for community-acquired pneumonia because the fever hepatorrhaphy the second day of admission. Today patient feeling better, no dyspnea. He still have wet scuffing but his follow his phlegm. No chest pain. He did not have bowel movement or passed gas yet. But his abdominal pain looks controlled and his abdomen less distended, he tolerates his diet with no nausea vomiting. Possible discontinuation of the Salamanca catheter today, we will recommend to check a bladder scan after discontinuing it Objective - Vital Signs Vital signs: Vital Signs Temp 98.3 F 06/29/20 05:00 Pulse 80 06/29/20 05:00 Resp 18 06/29/20 05:00 BP 136/67 06/29/20 05:00 Pulse Ox 96 06/29/20 05:00 Intake & Output 06/28/20 06/29/20 06/29/20 18:59 06:59 18:59 Intake Total 1000 130.5 Output Total 1730 3620 Balance -730 -3489.5 Intake: Intake, IV Titration 1000 130.5 Amount D5-0.45% NaCl with KCl 1000 20Meq/l 1,000 ml @ 125 mls/hr IV .Q8H [facility] Rx#: [id number] Ropivacaine 250 mg 130.5 Hydromorphone (Pf) 5 mg In Sodium Chloride 0.9% 200 ml @ Per Protocol EPIDURAL .Q0M PRN Rx#: [id number] Output: Drainage 130 170 Abdomen 130 170 Urine 1600 3450 Uretheral (Salamanca) 400 1725 Other: Voiding Method Indwelling Catheter - Exam -GENERAL: The patient is alert and oriented x3, not in any acute distress. Obese HEENT: Pupils are round and equally reacting to light. EOMI. No scleral icterus. No conjunctival pallor. Normocephalic, atraumatic. No pharyngeal erythema. No thyromegaly. CARDIOVASCULAR: S1 and S2 present. No murmurs, rubs, or gallops. PULMONARY: Chest is clear to auscultation, no wheezing or crackles. -ABDOMEN: Soft, nontender, nondistended, normoactive bowel sounds. No palpable organomegaly. Surgical wound with dressing is in place, midline vertical and one in the left lower quadrant. No colostomy bag. Rest of exam is deferred to surgery team MUSCULOSKELETAL: No joint swelling or deformity. EXTREMITIES: No cyanosis, clubbing, or pedal edema. NEUROLOGICAL: Gross neurological examination did not reveal any focal deficits. SKIN: No rashes. No petechiae - Labs CBC & Chem 7: 06/29/20 06:25 06/29/20 06:25 Labs: Abnormal Lab Results - Last 24 Hours (Table) 06/28/20 06/28/20 06/29/20 Range/Units 05:48 05:48 06:25 Lymphocytes # 0.9 L (1.0-4.8) k/uL Chloride 113 H (96-109) mmol/L Anion Gap 1.80 L (4.00-12.00) mmol/L BUN/Creatinine Ratio 10.00 L (12.00-20.00) Ratio Glucose 115 H (70-110) mg/dL Calcium 8.6 L (8.7-10.3) mg/dL Procalcitonin 0.64 H (0.02-0.09) ng/mL 06/29/20 Range/Units 06:25 Lymphocytes # (1.0-4.8) k/uL Chloride (96-109) mmol/L Anion Gap (4.00-12.00) mmol/L BUN/Creatinine Ratio 10.00 L (12.00-20.00) Ratio Glucose 116 H (70-110) mg/dL Calcium 8.6 L (8.7-10.3) mg/dL Procalcitonin (0.02-0.09) ng/mL Microbiology - Last 24 Hours (Table) 06/27/20 21:34 Blood Culture - Preliminary Blood No Growth after 24 hours 06/27/20 21:20 Blood Culture - Preliminary Blood No Growth after 24 hours Assessment and Plan Assessment: Recent diagnosis of descending colon cancer, status post partial colectomy on 06/2120 left lower lobe pneumonia Nicotine dependence Obesity with BMI of 32 History of coronary artery disease History of bladder cancer Plan: This is a pleasant 69 years old male with recent diagnosis of invasive adenocarcinoma of the descending colon status post partial colectomy. Surgery primary team Also patient developing left pneumonia, continue with Rocephin. Check sputum culture. Check bladder scan Th are managing his postop care and pain management. Continue with postop care with pain management and 50 prophylaxis. Encourage incentive spirometry. Continue with gentle hydration We recommend that patient follow up with oncologist as inpatient or close outp atient follow-up, we lifted this arrangements for the primary surgical team Labs and medication were reviewed.. Continue same treatment. Continue with symptomatic treatment. Resume home medication. Monitor lytes and vitals. DVT and GI prophylaxis. Further recommendations depends on the clinical course of the patient DVT prophylaxis: Subcutaneous heparin GI Prophylaxis: Pepcid Prognosis is guarded thank you for consulting us
--- NOTE | 2020-06-29 12:41 | P.PN ---
Subjective Progress Note Date: 06/29/20 Principal diagnosis: Descending colon mass Patient doing better today. He is afebrile. White blood cell count is normal. Covid test is pending that was ordered after his single febrile incident. No flatus or bowel movement. He is tolerating clears. Objective - Vital Signs Vital signs: Vital Signs Temp 98.6 F 06/29/20 11:37 Pulse 78 06/29/20 11:37 Resp 18 06/29/20 11:37 BP 109/69 06/29/20 11:37 Pulse Ox 98 06/29/20 11:37 Intake & Output 06/28/20 06/29/20 06/29/20 18:59 06:59 18:59 Intake Total 1000 130.5 Output Total 1730 3620 670 Balance -730 -3489.5 -670 Intake: Intake, IV Titration 1000 130.5 Amount D5-0.45% NaCl with KCl 1000 20Meq/l 1,000 ml @ 125 mls/hr IV .Q8H [facility] Rx#: [id number] Ropivacaine 250 mg 130.5 Hydromorphone (Pf) 5 mg In Sodium Chloride 0.9% 200 ml @ Per Protocol EPIDURAL .Q0M PRN Rx#: [id number] Output: Drainage 130 170 70 Abdomen 130 170 70 Urine 1600 3450 600 Uretheral (Salamanca) 400 1725 Other: Voiding Method Indwelling Catheter - Exam Abdomen: Soft, nondistended, mild tenderness, dressing clean dry, DEANGELO serous - Labs CBC & Chem 7: 06/29/20 06:25 06/29/20 06:25 Labs: Abnormal Lab Results - Last 24 Hours (Table) 06/29/20 06/29/20 Range/Units 06:25 06:25 Lymphocytes # 0.9 L (1.0-4.8) k/uL BUN/Creatinine Ratio 10.00 L (12.00-20.00) Ratio Glucose 116 H (70-110) mg/dL Calcium 8.6 L (8.7-10.3) mg/dL Microbiology - Last 24 Hours (Table) 06/27/20 21:34 Blood Culture - Preliminary Blood No Growth after 24 hours 06/27/20 21:20 Blood Culture - Preliminary Blood No Growth after 24 hours Assessment and Plan (1) Colonic mass Narrative/Plan: She doing fairly well. Will increase diet to full liquids. Await Covid test. Increase activity. Remove Salamanca and epidural catheter. Current Visit: Yes Status: Acute Code(s): K63.89 - OTHER SPECIFIED DISEASES OF INTESTINE SNOMED Code(s): 751973818
[2020-06-30] MEDS: D5-0.45% NACL WITH KCL 20MEQ/L 1,000 ML IV SCH ×2 (05:36→10:48)
--- NOTE | 2020-06-30 07:12 | P.PN ---
Progress Note - Text 06/29/20 1549 69-year-old male status post explore lap. Patient has an epidural catheter for postop pain control with the solution running at 6 mL an hour with a VAS of 4. Patient's epidural was DC'd by Dr. Martin this afternoon. Patient is to comfortable with no motor or sensory deficits.
[2020-06-30] MEDS: FAMOTIDINE 20 MG/2 ML VIAL IV SCH ×2 (08:13→20:11)
[2020-06-30] MEDS: HEPARIN SODIUM,PORCINE 5,000 UNIT/ML 1 ML VIAL SQ SCH ×3 (08:13→23:14)
[2020-06-30] MEDS: ALVIMOPAN 12 MG CAPSULE PO SCH ×2 (08:13→20:11)
[2020-06-30] MEDS: LACTATED RINGERS 1,000 ML IV SCH (09:57)
[2020-06-30] MEDS ORDERED: HYDROcodone/APAP 5-325MG 1 EACH TAB PO PRN (11:02)
--- NOTE | 2020-06-30 11:03 | P.PN ---
<Simran Garcia - Last Filed: 06/30/20 10:57> Subjective Progress Note Date: 06/30/20 CHIEF COMPLAINT: Descending colon cancer HISTORY OF PRESENT ILLNESS: Patient is status post partial colectomy, mobilization splenic flexure and partial omentectomy for descending colon cancer. Patient is sitting up in bedside chair. He reports that his pain is controlled, but he does feel sore. The epidural and Salamanca catheter were discontinued yesterday. He denies any nausea or vomiting. Denies any flatus or BM. T-max of 99 yesterday evening. Currently a temperature of 98.5. WBC 8.7 Covid negative urinalysis negative PHYSICAL EXAM: VITAL SIGNS: Reviewed. GENERAL: Well-developed in no acute distress. HEENT: No sclera icterus. Extraocular movements grossly intact. Moist buccal mucosa. Head is atraumatic, normocephalic. ABDOMEN: Soft. Nondistended. Dressing clean dry and intact. Abdominal binder in place. DEANGELO drain serous fluid NEUROLOGIC: Alert and oriented. Cranial nerves II through XII grossly intact. ASSESSMENT: 1. Descending colon cancer status post status post partial colectomy, mobilization splenic flexure and partial omentectomy PLAN: -Continue full liquid diet -And [place] for pain control -Encourage patient to ambulate -Encouraged patient to use incentive spirometer -GI prophylaxis Pepcid and DVT prophylaxis subcu heparin Physician Cake Puncher note has been reviewed by physician. Signing provider agrees with the documented findings, assessment, and plan of care. Objective - Vital Signs Vital signs: Vital Signs Temp 98.5 F 06/30/20 05:00 Pulse 76 06/30/20 05:00 Resp 20 06/30/20 05:00 BP 135/77 06/30/20 05:00 Pulse Ox 97 06/30/20 05:00 Intake & Output 06/29/20 06/30/20 06/30/20 18:59 06:59 18:59 Intake Total 2250 Output Total 3203 178 6256 Balance -1620 1750 -1100 Intake: Intake, IV Titration 1500 Amount D5-0.45% NaCl with KCl 1500 20Meq/l 1,000 ml @ 125 mls/hr IV .Q8H [facility] Rx#: [id number] Oral 750 Output: Drainage 120 100 Abdomen 120 100 Urine 0061 805 0915 Other: Voiding Method Indwelling Catheter Urinal Urinal # Voids 3 - Labs CBC & Chem 7: 06/29/20 06:25 06/29/20 06:25 Labs: Microbiology - Last 24 Hours (Table) 06/27/20 21:34 Blood Culture - Preliminary Blood No Growth after 48 hours 06/27/20 21:20 Blood Culture - Preliminary Blood No Growth after 48 hours 06/29/20 08:54 Gram Stain - Preliminary Sputum Sputum Culture - Preliminary <Solomon Martin - Last Filed: 06/30/20 15:47> Subjective As above. Patient doing well. No flatus or bowel movement yesterday. Tolerating full liquids. White blood cell count normal. Pathology pending. DEANGELO serous. Continue increasing activity. Stay on full. Objective - Vital Signs Vital signs: Vital Signs Temp 97.9 F 06/30/20 11:20 Pulse 75 06/30/20 11:20 Resp 17 06/30/20 11:20 BP 134/71 06/30/20 11:20 Pulse Ox 97 06/30/20 11:20 Intake & Output 06/29/20 06/30/20 06/30/20 18:59 06:59 18:59 Intake Total 2250 Output Total 6878 440 6719 Balance -1620 1750 -1150 Intake: Intake, IV Titration 1500 Amount D5-0.45% NaCl with KCl 1500 20Meq/l 1,000 ml @ 125 mls/hr IV .Q8H [facility] Rx#: [id number] Oral 750 Output: Drainage 120 100 50 Abdomen 120 100 50 Urine 9284 059 0034 Other: Voiding Method Indwelling Catheter Urinal Urinal # Voids 3 - Labs CBC & Chem 7: 06/29/20 06:25 06/30/20 12:11 Labs: Abnormal Lab Results - Last 24 Hours (Table) 06/30/20 Range/Units 12:11 BUN 8 L (9-20) mg/dL Glucose 108 H (74-99) mg/dL Microbiology - Last 24 Hours (Table) 06/27/20 21:34 Blood Culture - Preliminary Blood No Growth after 48 hours 06/27/20 21:20 Blood Culture - Preliminary Blood No Growth after 48 hours 06/29/20 08:54 Gram Stain - Preliminary Sputum Sputum Culture - Preliminary Assessment and Plan (1) Colonic mass Current Visit: Yes Status: Acute Code(s): K63.89 - OTHER SPECIFIED DISEASES OF INTESTINE SNOMED Code(s): 424497657
[2020-06-30 12:41] LABS: African American GFR (CKD) >90 (>60 ml/min/1.73 sqM); Anion Gap 8 mmol/L; Blood Urea Nitrogen 8 mg/dL (9-20); Calcium 9.1 mg/dL (8.4-10.2); Carbon Dioxide 23 mmol/L (22-30); Chloride 106 mmol/L (98-107); Glucose 108 mg/dL (74-99); Non-African American GFR(CKD) >90 (>60 ml/min/1.73 sqM); Potassium 4.7 mmol/L (3.5-5.1); Sodium 137 mmol/L (137-145)
--- NOTE | 2020-06-30 13:39 | P.PN ---
Subjective Progress Note Date: 06/30/20 This is a pleasant 69 years old male with past medical history of coronary artery disease, colon cancer, history of bladder cancers and 2013. He is a patient of Dr. Nunez at [facility] Patient had recently diagnosed with ascending colon cancer on CAT scan of the abdomen. Recent Colonoscopy was consistent with 60 cm malignant-appearing mass. Biopsy was positive for invasive adenocarcinoma. Patient underwent partial colectomy by Dr. finley yesterday. Today is postop day #1. Patient is with expected pain at the surgical site, no bowel movement or gas yet as she has recent surgery. No nausea vomiting, no fever. He has a Salamanca catheter is placed. Patient is aware of his diagnosis of cancer, I told him he needs to see a cancer doctor and oncologist and he agrees. He states that he smokes a pack that last him 3-4 days, patient is counseled to quit however he declined nicotine patch. No alcohol or illicit drugs Vitas looks stable. Recent lap one week ago showing normal sodium 141, potassium 4.4 and chloride 107, carbon dioxide 26. WBC is 10.8 K, hemoglobin normal 16.5 as well as platelets at 2091K. 06/28/2020 Patient is awake and alert, he has this abdominal pain, he feels himself better. However he is developing fever of 101.8, he denies any diarrhea actually he did not have bowel movement or passing gases. He has no vomiting and he is eating well. No urinary complaints and he has a Salamanca catheter. However he's been complaining of from cough and phlegm which is green in color since admission. But no chest pain. No significant breathing difficulty. CBC is stable from today, he had leukocytosis of 11.4 yesterday came back to normal at 9.6 today. UA today is negative. Chest x-ray: Minimal left basilar infiltrate. Correlate for atelectasis or atypical pneumonia Patient is already started on Rocephin. We will check a pro-consult on in, sputum culture 06/29/2020 This is a pleasant 69 years old male who presents with ascending colon cancer status post partial colectomy. Postoperatively patient was developing fever with chest x-ray was suspicious for left lower lobe pneumonia. Patient was started on ceftriaxone as it was treated for community-acquired pneumonia be cause the fever hepatorrhaphy the second day of admission. Today patient feeling better, no dyspnea. He still have wet scuffing but his follow his phlegm. No chest pain. He did not have bowel movement or passed gas yet. But his abdominal pain looks controlled and his abdomen less distended, he tolerates his diet with no nausea vomiting. Possible discontinuation of the Salamanca catheter today, we will recommend to check a bladder scan after discontinuing it 06/30/2020 Patient is seen and evaluated in follow-up currently sitting up in the chair with no acute overnight issues. Patient is postop partial colectomy due to descending colon cancer and is being closely followed by surgery. Patient remains on IV antibiotics in the form of ceftriaxone for the possibility of left lower lobe pneumonia as noted on chest x-ray. Sputum culture is pending. Patient has been afebrile for 24 hours now. Incentive spirometer at the bedside and instructed the patient to continue using at least 10 times every hour while awake. Patient also to increase activity as tolerated. Review of systems: Constitutional: No reports of fatigue, fever, or chills Cardiovascular: No reports of chest pain or palpitations Respiratory: No reports of shortness of breath reports occasional cough GI: No reports of nausea, vomiting, or diarrhea : No reports of dysuria or retention Neurovascular: No reports of weakness or numbness All medications have been reviewed Objective - Vital Signs Vital signs: Vital Signs Temp 98.5 F 06/30/20 05:00 Pulse 76 06/30/20 05:00 Resp 20 06/30/20 05:00 BP 135/77 06/30/20 05:00 Pulse Ox 97 06/30/20 05:00 Intake & Output 06/29/20 06/30/20 06/30/20 18:59 06:59 18:59 Intake Total 2250 Output Total 0077 774 0956 Balance -1620 1750 -1100 Intake: Intake, IV Titration 1500 Amount D5-0.45% NaCl with KCl 1500 20Meq/l 1,000 ml @ 125 mls/hr IV .Q8H [facility] Rx#: [id number] Oral 750 Output: Drainage 120 100 Abdomen 120 100 Urine 6812 576 0256 Other: Voiding Method Indwelling Catheter Urinal Urinal # Voids 3 - Exam -GENERAL: The patient is alert and oriented x3, not in any acute distress. Obese HEENT: Pupils are round and equally reacting to light. EOMI. No scleral icterus. No conjunctival pallor. Normocephalic, atraumatic. No pharyngeal erythema. No thyromegaly. CARDIOVASCULAR: S1 and S2 present. No murmurs, rubs, or gallops. PULMONARY: Chest is clear to auscultation, no wheezing or crackles. -ABDOMEN: Soft, nontender, nondistended, normoactive bowel sounds. No palpable organomegaly. Surgical wound with dressing is in place, midline vertical and one in the left lower quadrant. No colostomy bag. Rest of exam is deferred to surgery team MUSCULOSKELETAL: No joint swelling or deformity. EXTREMITIES: No cyanosis, clubbing, or pedal edema. NEUROLOGICAL: Gross neurological examination did not reveal any focal deficits. SKIN: No rashes. No petechiae - Labs CBC & Chem 7: 06/29/20 06:25 06/30/20 12:11 Labs: Microbiology - Last 24 Hours (Table) 06/27/20 21:34 Blood Culture - Preliminary Blood No Growth after 48 hours 06/27/20 21:20 Blood Culture - Preliminary Blood No Growth after 48 hours 06/29/20 08:54 Gram Stain - Preliminary Sputum Sputum Culture - Preliminary Assessment and Plan Assessment: Recent diagnosis of descending colon cancer, status post partial colectomy on 06/26/2020 left lower lobe pneumonia as noted on chest x-ray Covid 19 ruled out, testing was negative Continued ongoing Nicotine dependence; counseling was provided Obesity with BMI of 32 History of coronary artery disease History of bladder cancer DVT prophylaxis: Subcutaneous heparin GI prophylaxis: Pepcid Full code Plan: Continue with current medications. Patient is maintained on IV ceftriaxone for possible left lower lobe pneumonia and will continue. Patient has been afebrile now for 24 hours and white blood count trending down last noted is 8.7. Sputum cultures pending. Incentive spirometer at the bedside and instructed and encouraged the patient to continue using at least 10 times every hour while awake and also increasing activity as tolerated. Repeat sodium 137, potassium 4.7, creatinine 0.75 and will discontinue IV fluids as patient is tolerating full liquid diet with no reports of nausea or vomiting noted. Will continue to follow with surgery with further recommendations to follow. Patient will follow-up outpatient with surgery along with oncology once pathology report as finalized. thank you for this consultation.
[2020-07-01] MEDS: ALVIMOPAN 12 MG CAPSULE PO SCH (09:32)
[2020-07-01] MEDS: FAMOTIDINE 20 MG/2 ML VIAL IV SCH ×2 (09:32→21:06)
[2020-07-01] MEDS: HEPARIN SODIUM,PORCINE 5,000 UNIT/ML 1 ML VIAL SQ SCH ×3 (09:32→21:57)
--- NOTE | 2020-07-01 10:53 | P.PN ---
<Simran Garcia - Last Filed: 07/01/20 10:50> Subjective Progress Note Date: 07/01/20 CHIEF COMPLAINT: Descending colon cancer HISTORY OF PRESENT ILLNESS: Patient is status post partial colectomy, mobilization splenic flexure and partial omentectomy for descending colon cancer. He is lying in bed comfortably. He reports that his pain is controlled, but he does feel sore. He denies any nausea or vomiting. Denies any flatus or BM. Afebrile afebrile PHYSICAL EXAM: VITAL SIGNS: Reviewed. GENERAL: Well-developed in no acute distress. HEENT: No sclera icterus. Extraocular movements grossly intact. Moist buccal mucosa. Head is atraumatic, normocephalic. ABDOMEN: Soft. Nondistended. Dressing clean dry and intact. Abdominal binder in place. DEANGELO drain is serous in color with slight pink tinge NEUROLOGIC: Alert and oriented. Cranial nerves II through XII grossly intact. ASSESSMENT: 1. Descending colon cancer status post status post partial colectomy, mobilization splenic flexure and partial omentectomy PLAN: -Continue full liquid diet -And [place] for pain control -Encourage patient to ambulate -Encouraged patient to use incentive spirometer -GI prophylaxis Pepcid and DVT prophylaxis subcu heparin Physician Solar Sales Energy Advisor note has been reviewed by physician. Signing provider agrees with the documented findings, assessment, and plan of care. Objective - Vital Signs Vital signs: Vital Signs Temp 97.7 F 07/01/20 05:00 Pulse 71 07/01/20 05:00 Resp 18 07/01/20 05:00 BP 128/75 07/01/20 05:00 Pulse Ox 95 07/01/20 05:00 Intake & Output 06/30/20 07/01/20 07/01/20 18:59 06:59 18:59 Intake Total 375 475 Output Total 1150 40 50 Balance -775 435 -50 Intake: Intake, IV Titration 375 Amount D5-0.45% NaCl with KCl 375 20Meq/l 1,000 ml @ 125 mls/hr IV .Q8H [facility] Rx#: [id number] Oral 475 Output: Drainage 50 40 50 Abdomen 50 40 50 Urine 1100 Other: Voiding Method Urinal Urinal Urinal # Voids 2 - Labs CBC & Chem 7: 06/29/20 06:25 06/30/20 12:11 Labs: Abnormal Lab Results - Last 24 Hours (Table) 06/30/20 Range/Units 12:11 BUN 8 L (9-20) mg/dL Glucose 108 H (74-99) mg/dL Microbiology - Last 24 Hours (Table) 06/29/20 08:54 Gram Stain - Final Sputum Sputum Culture - Final 06/27/20 21:34 Blood Culture - Preliminary Blood No Growth after 72 hours 06/27/20 21:20 Blood Culture - Preliminary Blood No Growth after 72 hours <Solomon Martin - Last Filed: 07/01/20 16:39> Subjective As above. Patient doing well. Increase diet. Ambulate. Await final path. Possible discharge tomorrow. Objective - Vital Signs Vital signs: Vital Signs Temp 97.7 F 07/01/20 13:54 Pulse 73 07/01/20 13:26 Resp 16 07/01/20 13:26 BP 136/69 07/01/20 13:26 Pulse Ox 96 07/01/20 13:26 Intake & Output 06/30/20 07/01/20 07/01/20 18:59 06:59 18:59 Intake Total 375 475 Output Total 1150 40 50 Balance -775 435 -50 Intake: Intake, IV Titration 375 Amount D5-0.45% NaCl with KCl 375 20Meq/l 1,000 ml @ 125 mls/hr IV .Q8H [facility] Rx#: [id number] Oral 475 Output: Drainage 50 40 50 Abdomen 50 40 50 Urine 1100 Other: Voiding Method Urinal Urinal Urinal # Voids 2 # Bowel Movements 1 - Labs CBC & Chem 7: 06/29/20 06:25 06/30/20 12:11 Labs: Microbiology - Last 24 Hours (Table) 06/29/20 08:54 Gram Stain - Final Sputum Sputum Culture - Final 06/27/20 21:34 Blood Culture - Preliminary Blood No Growth after 72 hours 06/27/20 21:20 Blood Culture - Preliminary Blood No Growth after 72 hours Assessment and Plan (1) Colonic mass Current Visit: Yes Status: Acute Code(s): K63.89 - OTHER SPECIFIED DISEASES OF INTESTINE SNOMED Code(s): 864887887
--- NOTE | 2020-07-01 14:34 | P.PN ---
Subjective Progress Note Date: 07/01/20 This is a pleasant 69 years old male with past medical history of coronary artery disease, colon cancer, history of bladder cancers and 2013. He is a patient of Dr. Nunez at [facility] Patient had recently diagnosed with ascending colon cancer on CAT scan of the abdomen. Recent Colonoscopy was consistent with 60 cm malignant-appearing mass. Biopsy was positive for invasive adenocarcinoma. Patient underwent partial colectomy by Dr. finley yesterday. Today is postop day #1. Patient is with expected pain at the surgical site, no bowel movement or gas yet as she has recent surgery. No nausea vomiting, no fever. He has a Salamanca catheter is placed. Patient is aware of his diagnosis of cancer, I told him he needs to see a cancer doctor and oncologist and he agrees. He states that he smokes a pack that last him 3-4 days, patient is counseled to quit however he declined nicotine patch. No alcohol or illicit drugs Vitas looks stable. Recent lap one week ago showing normal sodium 141, potassium 4.4 and chloride 107, carbon dioxide 26. WBC is 10.8 K, hemoglobin normal 16.5 as well as platelets at 2091K. 06/28/2020 Patient is awake and alert, he has this abdominal pain, he feels himself better. However he is developing fever of 101.8, he denies any diarrhea actually he did not have bowel movement or passing gases. He has no vomiting and he is eating well. No urinary complaints and he has a Salamanca catheter. However he's been complaining of from cough and phlegm which is green in color since admission. But no chest pain. No significant breathing difficulty. CBC is stable from today, he had leukocytosis of 11.4 yesterday came back to normal at 9.6 today. UA today is negative. Chest x-ray: Minimal left basilar infiltrate. Correlate for atelectasis or atypical pneumonia Patient is already started on Rocephin. We will check a pro-consult on in, sputum culture 06/29/2020 This is a pleasant 69 years old male who presents with ascending colon cancer status post partial colectomy. Postoperatively patient was developing fever with chest x-ray was suspicious for left lower lobe pneumonia. Patient was started on ceftriaxone as it was treated for community-acquired pneumonia be cause the fever hepatorrhaphy the second day of admission. Today patient feeling better, no dyspnea. He still have wet scuffing but his follow his phlegm. No chest pain. He did not have bowel movement or passed gas yet. But his abdominal pain looks controlled and his abdomen less distended, he tolerates his diet with no nausea vomiting. Possible discontinuation of the Salamanca catheter today, we will recommend to check a bladder scan after discontinuing it 06/30/2020 Patient is seen and evaluated in follow-up currently sitting up in the chair with no acute overnight issues. Patient is postop partial colectomy due to descending colon cancer and is being closely followed by surgery. Patient remains on IV antibiotics in the form of ceftriaxone for the possibility of left lower lobe pneumonia as noted on chest x-ray. Sputum culture is pending. Patient has been afebrile for 24 hours now. Incentive spirometer at the bedside and instructed the patient to continue using at least 10 times every hour while awake. Patient also to increase activity as tolerated. 07/01/2020 Patient is seen this morning with no acute overnight issues. Patient Is currently maintained on full liquid diet and tolerating with no reports of nausea or vomiting noted. Patient sputum culture is negative and patient is maintained on IV ceftriaxone and will continue. Patient denies any passing of gas and reports no bowel movements at this time. Patient states he had a small abdominal cramp in the lower abdomen this morning that has subsided. DEANGELO drain noted on the left with minimal output of serous fluid. Patient instructed to increase activity and sit up in the chair today and encouraged incentive spirometer use. Review of systems: Constitutional: No reports of fatigue, fever, or chills Cardiovascular: No reports of chest pain or palpitations Respiratory: No reports of shortness of breath reports occasional cough GI: No reports of nausea, vomiting, or diarrhea : No reports of dysuria or retention Neurovascular: No reports of weakness or numbness All medications have been reviewed Objective - Vital Signs Vital signs: Vital Signs Temp 97.7 F 07/01/20 05:00 Pulse 71 07/01/20 05:00 Resp 18 07/01/20 05:00 BP 128/75 07/01/20 05:00 Pulse Ox 95 07/01/20 05:00 Intake & Output 06/30/20 07/01/20 07/01/20 18:59 06:59 18:59 Intake Total 375 475 Output Total 1150 40 50 Balance -775 435 -50 Intake: Intake, IV Titration 375 Amount D5-0.45% NaCl with KCl 375 20Meq/l 1,000 ml @ 125 mls/hr IV .Q8H [facility] Rx#: [id number] Oral 475 Output: Drainage 50 40 50 Abdomen 50 40 50 Urine 1100 Other: Voiding Method Urinal Urinal Urinal # Voids 2 - Exam GENERAL: The patient is alert and oriented x3, not in any acute distress. Obese HEENT: Pupils are round and equally reacting to light. EOMI. No scleral icterus. No conjunctival pallor. Normocephalic, atraumatic. No pharyngeal erythema. No thyromegaly. CARDIOVASCULAR: S1 and S2 present. No murmurs, rubs, or gallops. PULMONARY: Chest is clear to auscultation, with some mild expiratory wheeze noted on the right with no crackles. ABDOMEN: Soft, nontender, nondistended, normoactive bowel sounds. No palpable organomegaly. Surgical wound with dressing is in place, midline is dry and intact with some tenderness noted around the site, DEANGELO drain noted with minimal serous fluid. MUSCULOSKELETAL: No joint swelling or deformity. EXTREMITIES: No cyanosis, clubbing, or pedal edema. NEUROLOGICAL: Gross neurological examination did not reveal any focal deficits. SKIN: No rashes. No petechiae - Labs CBC & Chem 7: 06/29/20 06:25 06/30/20 12:11 Labs: Abnormal Lab Results - Last 24 Hours (Table) 06/30/20 Range/Units 12:11 BUN 8 L (9-20) mg/dL Glucose 108 H (74-99) mg/dL Microbiology - Last 24 Hours (Table) 06/29/20 08:54 Gram Stain - Final Sputum Sputum Culture - Final 06/27/20 21:34 Blood Culture - Preliminary Blood No Growth after 72 hours 06/27/20 21:20 Blood Culture - Preliminary Blood No Growth after 72 hours Assessment and Plan Assessment: Recent diagnosis of descending colon cancer, status post partial colectomy on 06/26/2020 left lower lobe pneumonia as noted on chest x-ray, maintained on IV Rocephin Covid 19 ruled out, testing was negative Continued ongoing Nicotine dependence; counseling was provided Obesity with BMI of 32 History of coronary artery disease History of bladder cancer DVT prophylaxis: Subcutaneous heparin GI prophylaxis: Pepcid Full code Plan: Continue with current medications. Continue with IV ceftriaxone and will give oral Ceftin upon discharge for a few days. Patient has been afebrile now for 48 hours. Sputum cultures negative. Continue to encourage Incentive spirometer and increase activity as tolerated. Will continue to follow with surgery with uche gerard recommendations to follow. Patient will follow-up outpatient with surgery along with oncology once pathology report as finalized. Pathology report still pending. Thank you for this consultation.
[2020-07-01] MEDS: LACTATED RINGERS 1,000 ML IV SCH (17:38)
[2020-07-02] MEDS: LACTATED RINGERS 1,000 ML IV SCH (06:00)
[2020-07-02 07:45] VITALS: RESP 18
[2020-07-02] MEDS: HEPARIN SODIUM,PORCINE 5,000 UNIT/ML 1 ML VIAL SQ SCH (08:30)
[2020-07-02] MEDS: FAMOTIDINE 20 MG/2 ML VIAL IV SCH (08:42)
[2020-07-02 12:53] VITALS: BP 165/87; PULSE 91; TEMP 97.5
--- NOTE | 2020-07-02 12:58 | P.PN ---
Subjective Progress Note Date: 07/02/20 This is a pleasant 69 years old male with past medical history of coronary artery disease, colon cancer, history of bladder cancers and 2013. He is a patient of Dr. Nunez at [facility] Patient had recently diagnosed with ascending colon cancer on CAT scan of the abdomen. Recent Colonoscopy was consistent with 60 cm malignant-appearing mass. Biopsy was positive for invasive adenocarcinoma. Patient underwent partial colectomy by Dr. finley yesterday. Today is postop day #1. Patient is with expected pain at the surgical site, no bowel movement or gas yet as she has recent surgery. No nausea vomiting, no fever. He has a Salamanca catheter is placed. Patient is aware of his diagnosis of cancer, I told him he needs to see a cancer doctor and oncologist and he agrees. He states that he smokes a pack that last him 3-4 days, patient is counseled to quit however he declined nicotine patch. No alcohol or illicit drugs Vitas looks stable. Recent lap one week ago showing normal sodium 141, potassium 4.4 and chloride 107, carbon dioxide 26. WBC is 10.8 K, hemoglobin normal 16.5 as well as platelets at 2091K. 06/28/2020 Patient is awake and alert, he has this abdominal pain, he feels himself better. However he is developing fever of 101.8, he denies any diarrhea actually he did not have bowel movement or passing gases. He has no vomiting and he is eating well. No urinary complaints and he has a Salamanca catheter. However he's been complaining of from cough and phlegm which is green in color since admission. But no chest pain. No significant breathing difficulty. CBC is stable from today, he had leukocytosis of 11.4 yesterday came back to normal at 9.6 today. UA today is negative. Chest x-ray: Minimal left basilar infiltrate. Correlate for atelectasis or atypical pneumonia Patient is already started on Rocephin. We will check a pro-consult on in, sputum culture 06/29/2020 This is a pleasant 69 years old male who presents with ascending colon cancer status post partial colectomy. Postoperatively patient was developing fever with chest x-ray was suspicious for left lower lobe pneumonia. Patient was started on ceftriaxone as it was treated for community-acquired pneumonia be cause the fever hepatorrhaphy the second day of admission. Today patient feeling better, no dyspnea. He still have wet scuffing but his follow his phlegm. No chest pain. He did not have bowel movement or passed gas yet. But his abdominal pain looks controlled and his abdomen less distended, he tolerates his diet with no nausea vomiting. Possible discontinuation of the Salamanca catheter today, we will recommend to check a bladder scan after discontinuing it 06/30/2020 Patient is seen and evaluated in follow-up currently sitting up in the chair with no acute overnight issues. Patient is postop partial colectomy due to descending colon cancer and is being closely followed by surgery. Patient remains on IV antibiotics in the form of ceftriaxone for the possibility of left lower lobe pneumonia as noted on chest x-ray. Sputum culture is pending. Patient has been afebrile for 24 hours now. Incentive spirometer at the bedside and instructed the patient to continue using at least 10 times every hour while awake. Patient also to increase activity as tolerated. 07/01/2020 Patient is seen this morning with no acute overnight issues. Patient Is currently maintained on full liquid diet and tolerating with no reports of nausea or vomiting noted. Patient sputum culture is negative and patient is maintained on IV ceftriaxone and will continue. Patient denies any passing of gas and reports no bowel movements at this time. Patient states he had a small abdominal cramp in the lower abdomen this morning that has subsided. DEANGELO drain noted on the left with minimal output of serous fluid. Patient instructed to increase activity and sit up in the chair today and encouraged incentive spirometer use. 07/02/2020 Patient is seen this morning and continues to be on IV Rocephin and will transition to oral Ceftin for the next few days to complete the course on discharge. Patient has been afebrile with no reports of increased cough or shortness of breath. Patient is passing gas and having bowel movements this morning. Patient continues to use incentive spirometer and instructed to continue using even the outpatient setting. Patient has been getting up and getting to the bathroom with no difficulties. Patient continues to have some abdominal tenderness although states is slightly improved. Will discuss with surgery about resuming aspirin and Plavix for previous history of heart catheterization and CABG in 2017. Antiplatelets were on hold prior to surgery. Patient denies any chest pain, shortness of breath, or palpitations. Patient is tolerating diet with no reports of nausea or vomiting noted. Review of systems: Constitutional: No reports of fatigue, fever, or chills Cardiovascular: No reports of chest pain or palpitations Respiratory: No reports of shortness of breath reports occasional cough, patient is a smoker GI: No reports of nausea, vomiting, or diarrhea : No reports of dysuria or retention Neurovascular: No reports of weakness or numbness All medications have been reviewed Objective - Vital Signs Vital signs: Vital Signs Temp 98.4 F 07/02/20 07:35 Pulse 78 07/02/20 07:35 Resp 18 07/02/20 07:35 BP 144/81 07/02/20 07:35 Pulse Ox 95 07/02/20 07:35 Intake & Output 07/01/20 07/02/20 07/02/20 18:59 06:59 18:59 Intake Total 600 200 Output Total 50 80 Balance 550 120 Intake: Oral 600 200 Output: Drainage 50 80 Abdomen 50 80 Other: Voiding Method Urinal Urinal # Bowel Movements 1 - Exam GENERAL: The patient is alert and oriented x3, not in any acute distress. Obese HEENT: Pupils are round and equally reacting to light. EOMI. No scleral icterus. No conjunctival pallor. Normocephalic, atraumatic. No pharyngeal erythema. No thyromegaly. CARDIOVASCULAR: S1 and S2 present. No murmurs, rubs, or gallops. PULMONARY: Chest is clear to auscultation, with some mild expiratory wheeze noted on the right with no crackles. ABDOMEN: Soft, nontender, nondistended, normoactive bowel sounds. No palpable organomegaly. Surgical wound with dressing is in place, midline is dry and intact with some tenderness noted around the site, DEANGELO drain noted with minimal s erous fluid. MUSCULOSKELETAL: No joint swelling or deformity. EXTREMITIES: No cyanosis, clubbing, or pedal edema. NEUROLOGICAL: Gross neurological examination did not reveal any focal deficits. SKIN: No rashes. No petechiae - Labs CBC & Chem 7: 06/29/20 06:25 06/30/20 12:11 Labs: Microbiology - Last 24 Hours (Table) 06/27/20 21:34 Blood Culture - Preliminary Blood No Growth after 96 hours 06/27/20 21:20 Blood Culture - Preliminary Blood No Growth after 96 hours 06/29/20 08:54 Gram Stain - Final Sputum Sputum Culture - Final Assessment and Plan Assessment: Recent diagnosis of descending colon cancer, status post partial colectomy on 06/26/2020 left lower lobe pneumonia as noted on chest x-ray, maintained on IV Rocephin Covid 19 ruled out, testing was negative Continued ongoing Nicotine dependence; counseling was provided Obesity with BMI of 32 History of coronary artery disease History of CABG History of bladder cancer DVT prophylaxis: Subcutaneous heparin GI prophylaxis: Pepcid Full code Plan: Continue with current medications. Continue with IV ceftriaxone and will give oral Ceftin upon discharge for a few days. Patient remains afebrile. Patient is passing gas and having bowel movements and tolerating diet with no reports of nausea or vomiting noted. Patient states his bowel movement was loose with no blood noted. Continue to encourage Incentive spirometer and increase activity as tolerated. Will continue to follow with surgery with further recommendations to follow. Discussed with surgery and will resume aspirin and Plavix for previous history of CABG. Patient will follow-up outpatient with surgery along with oncology once pathology report is finalized. Pathology report still pending.
[2020-07-02] MEDS ORDERED: MULTIVITAMINS, THERA 1 EACH TAB PO SCH (13:00)
[2020-07-02] MEDS ORDERED: CLOPIDOGREL 75 MG TAB PO SCH (13:00)
[2020-07-02] MEDS ORDERED: carvediloL 3.125 MG TAB PO SCH (13:00)
[2020-07-02] MEDS ORDERED: ASPIRIN 81 MG PO SCH (13:00)
--- NOTE | 2020-07-02 13:13 | P.DS ---
<Simran Garcia - Last Filed: 07/02/20 13:09> Providers Expected date of discharge: 07/02/20 Hospital Course: Discharge diagnosis 1. Descending colon cancer status post status post partial colectomy, mobilization splenic flexure and partial omentectomy Hospital course This is a 69-year-old male who had a computed tomography scan completed that showed abnormal colonic thickening in the midportion of the descending colon. He underwent colonoscopy and was found to have a malignant appearing mass at 60 cm. Biopsies were taken and showed invasive adenocarcinoma. Patient therefore underwent partial colectomy, mobilization splenic flexure and partial omentectomy for descending colon cancer. Patient tolerated surgery well. His pain is controlled. He is tolerating diet. He is having bowel movements and passing gas. He is ambulating without difficulty. He is afebrile. Patient is stable for discharge. Please free to chart for any further details. Physician Customer Experience Consultant note has been reviewed by physician. Signing provider agrees with the documented findings, assessment, and plan of care. Patient Condition at Discharge: Stable Plan - Discharge Summary Discharge Rx Participant: No New Discharge Prescriptions: New Cefuroxime Axetil [Ceftin] 500 mg PO BID 3 Days #6 tab Acetaminophen Tab [Tylenol] 650 mg PO Q4HR PRN tab PRN Reason: Fever And/ Or Pain Docusate [Colace] 100 mg PO BID #30 capsule HYDROcodone/APAP 5-325MG [Est[place] 5-325] 1 tab PO Q6HR PRN 3 Days #10 tab PRN Reason: Pain Continue Aspirin 81 mg PO DAILY carvediloL [Coreg] 3.125 mg PO QAM Rosuvastatin Calcium [Crestor] 20 mg PO DAILY Multivitamins, Thera [Multivitamin (formulary)] 1 tab PO DAILY Lisinopril [Prinivil] 5 mg PO QAM Clopidogrel [Plavix] 75 mg PO DAILY [place]-3/Dha/Epa/Fish Oil [Fish Oil 500 mg Softgel] 1 each PO DAILY Discharge Medication List Aspirin 81 mg PO DAILY 06/23/20 [History] Clopidogrel [Plavix] 75 mg PO DAILY 06/23/20 [History] Lisinopril [Prinivil] 5 mg PO QAM 06/23/20 [History] Multivitamins, Thera [Multivitamin (formulary)] 1 tab PO DAILY 06/23/20 [History] [place]-3/Dha/Epa/Fish Oil [Fish Oil 500 mg Softgel] 1 each PO DAILY 06/23/20 [History] Rosuvastatin Calcium [Crestor] 20 mg PO DAILY 06/23/20 [History] carvediloL [Coreg] 3.125 mg PO QAM 06/23/20 [History] Acetaminophen Tab [Tylenol] 650 mg PO Q4HR PRN tab 07/02/20 [Rx] Cefuroxime Axetil [Ceftin] 500 mg PO BID 3 Days #6 tab 07/02/20 [Rx] Docusate [Colace] 100 mg PO BID #30 capsule 07/02/20 [Rx] HYDROcodone/APAP 5-325MG [Est[place] 5-325] 1 tab PO Q6HR PRN 3 Days #10 tab 07/02/20 [Rx] Follow up Appointment(s)/Referral(s): Solomon Martin MD [Medical Doctor] - 07/10/20 8:30 am [facility] [NON-STAFF] - 1 Week Patient Instructions/Handouts: Cefuroxime (By mouth), Hydrocodone/Acetaminophen (By mouth), Laxative, Stool Softeners (By mouth), Low Fat Diet (DC), Colectomy ( DC) Activity/Diet/Wound Care/Special Instructions: No driving while taking Est[place] No lifting over 10 pounds You may shower. No soaking or tub baths for 2 weeks Very light activity until you are reevaluated at your follow up appointment with your surgeon Diet low-fat Dr. Martin will call patient with pathology report Discharge Disposition: HOME SELF-CARE <Solomon Martin - Last Filed: 07/02/20 18:19> Providers Date of admission: 06/26/20 10:36 Attending physician: Solomon Martin Consults: 06/26/20 16:47 Consult Physician Routine Consulting Provider: Benito Galicia Consult Reason/Comments: Medical management Do you want consulting provider notified?: Yes Primary care physician: Antonio Trevino - Discharge Diagnosis(es) (1) Colonic mass Status: Acute
[2020-07-02 13:22] VITALS: BMI 32.0
== END 2020-07-02 14:58 | disposition home or self-care (01) | DRG 329 ==
LOC: 2ORMAIN 10:36 → 5NMEDONC 17:20
PROVIDERS: ADMIT Surgery; ATTEND Surgery
PROC: 0DBM0ZZ Excision of Descending Colon, Open Approach (ICD-10-PCS; principal; 2020-06-26 12:30)
PROC: 0DBU0ZZ Excision of Omentum, Open Approach (ICD-10-PCS; principal; 2020-06-26 12:30)
DX: C18.6 Malignant neoplasm of descending colon (principal); J18.9 Pneumonia, unspecified organism; I50.22 Chronic systolic (congestive) heart failure; J98.11 Atelectasis; I11.0 Hypertensive heart disease with heart failure; Z20.822 Contact with and (suspected) exposure to COVID-19; I25.10 Atherosclerotic heart disease of native coronary artery without angina pectoris; E66.9 Obesity, unspecified; Z68.32 Body mass index [BMI] 32.0-32.9, adult; F17.200 Nicotine dependence, unspecified, uncomplicated; Z71.6 Tobacco abuse counseling; Z95.1 Presence of aortocoronary bypass graft; Z79.02 Long term (current) use of antithrombotics/antiplatelets; Z79.82 Long term (current) use of aspirin; Z79.899 Other long term (current) drug therapy; Z85.51 Personal history of malignant neoplasm of bladder; Z92.21 Personal history of antineoplastic chemotherapy; Z80.3 Family history of malignant neoplasm of breast
CPT/HCPCS: 71045; 80048; 81003; 84132; 84145; 85025; 85610; 86850; 86900; 86901; 87040; 87070; 87205; 88309

== ENCOUNTER → 2020-08-11 | Day surgery (SDC) | payer MEDICARE ==
[~2020-08-11] MED LIST changes: -ALVIMOPAN 12 MG CAPSULE PO PRN; +HEPARIN SODIUM,PORCINE 100 UNIT/ML 5 ML VIAL IV ONE; +HYDROcodone/APAP 5-325MG 1 EACH TAB PO PRN; +LACTATED RINGERS 1,000 ML IV SCH; +LIDOCAINE 1% INJ 10MG/ML (20 ML MDV) ONE; +LIDOCAINE 1% INJ 10MG/ML (20 ML MDV) SQ ONE; +MIDAZOLAM 2 MG/2 ML VIAL IV PRN; +MIDAZOLAM 2 MG/2 ML VIAL ONE; +NALOXONE 0.4 MG/ML 1 ML VIAL IV PRN; +PROPOFOL 10 MG/ML 20 ML VIAL IV ONE; +Pre Op ABX Message 1 EACH MISC MISCELLANE ONE; +SODIUM CHLORIDE 0.9% 50 ML with ceFAZolin 2,000 MG IV ONE; +fentaNYL (PF) 50 MCG/ML 2 ML AMP ONE; -metroNIDAZOLE-NS PMX 500 MG in SALINE 1 100ML.BAG IVPB PRN
[2020-08-11 08:21] VITALS: RESP 16
[2020-08-11 08:36] LABS: Glucose,Whole Blood 130 mg/dL (75-99)
[2020-08-11 11:14] VITALS: TEMP 96.8
--- NOTE | 2020-08-11 11:28 | P.OP ---
Date of Procedure: 08/11/20 Procedure(s) Performed: PREOPERATIVE DIAGNOSIS: Colon cancer POSTOPERATIVE DIAGNOSIS: Same PROCEDURE: Port-A-Cath placement with fluoroscopic and ultrasound guidance SURGEON: Veronica EBL: Minimal ANESTHESIA: Sedation COMPLICATIONS: None OPERATIVE PROCEDURE: Patient was brought and placed on the operative table in the supine position. The patient was sedated per anesthesia that time. The chest and neck were prepped and draped in usual sterile fashion. The ultrasound probe was used to identify the location of the right internal jugular vein. The skin was localized with lidocaine. The Seldinger needle was advanced into the IJ under ultrasound guidance. The wire was advanced through the needle under fluoroscopic guidance into the superior vena cava. A port pocket was created in the right infraclavicular location. The catheter was tunneled from the wire entrance site to the port pocket. The port was then connected to the catheter. The dilator introducer was threaded over the guidewire. The guidewire and dilator were then removed. The catheter was advanced through the introducer and introducer was then removed. The tip was seen to be in the right atrial junction via fluoroscopy. A picture of the radiograph showing the tip at the radial digital junction was taken. Port was flushed with both saline and a Hep- Lock solution. There was good flow both in and out of the port. The port was sutured in underlying tissues using 3-0 silk sutures. The subcutaneous tissues were reapproximated using 3-0 Vicryl sutures and the skin at both locations using 4-0 Monocryl sutures. Skin glue and sterile dressings then applied. DISPOSITION: Stable to recovery room
--- NOTE | 2020-08-11 11:30 | XR ---
EXAMINATION TYPE: XR chest 1V confirm line [facility] DATE OF EXAM: 08/11/2020 COMPARISON: Chest x-ray June 28, 2020. HISTORY: Port-A-Cath insertion. TECHNIQUE: Single frontal view of the chest is obtained. FINDINGS: New right internal jugular Mediport catheter terminating in SVC. Post-CABG changes with med iastinal clips and sternal wires. There is chronic parenchymal change without suspicious new focal ai r space opacity, pleural effusion, or pneumothorax seen. The cardiac silhouette size is stable and w ithin normal limits. The osseous structures are intact. IMPRESSION: No pneumothorax after Mediport catheter insertion.
--- NOTE | 2020-08-11 11:44 | FL ---
EXAMINATION TYPE: FL eval central venous access DATE OF EXAM: 08/11/2020 COMPARISON: NONE HISTORY: Mediport catheter insertion. TECHNIQUE: Fluoroscopy. FINDINGS: Fluoroscopic guidance was provided during Mediport catheter insertion procedure performed by Dr. Martin. A total of 11 seconds of fluoroscopic time was utilized during the procedure and 1 spo t images was acquired. Single spot intraoperative image obtained shows right internal jugular Medipor t catheter terminating in SVC. Overlying sternal wires incidentally noted. IMPRESSION: As Above.
[2020-08-11 12:41] VITALS: BP 127/75; PULSE 95
== END ==
LOC: OR 07:46
PROVIDERS: ATTEND Surgery
DX: Z45.2 Encounter for adjustment and management of vascular access device (principal); C18.9 Malignant neoplasm of colon, unspecified; I25.10 Atherosclerotic heart disease of native coronary artery without angina pectoris; F17.210 Nicotine dependence, cigarettes, uncomplicated; Z79.82 Long term (current) use of aspirin; Z79.899 Other long term (current) drug therapy; Z95.1 Presence of aortocoronary bypass graft; Z80.3 Family history of malignant neoplasm of breast
CPT/HCPCS: 36561; 36598; C1788; J2250; J1644; J1642; J2405; J0690; J2001; J3010; J2704

== ENCOUNTER → 2020-08-11 | Outpatient (CLI) | payer MEDICARE ==
--- NOTE | 2020-08-11 15:49 | CT ---
EXAMINATION TYPE: CT ChestAbdPelvis w con DATE OF EXAM: 08/11/2020 COMPARISON: None at this institution. HISTORY: Colon CA CT DLP: 1912 mGycm. Automated Exposure Control for Dose Reduction was Utilized. CONTRAST: CT scan of the thorax, abdomen and pelvis is performed with oral and with IV Contrast, patient inject ed with 100 mL of Isovue 300. FINDINGS: LUNGS: Mild reticulation in the periphery of the upper lungs. Mild bibasilar linear scarring and/or a telectasis. No suspicious greater than 4 mm pulmonary nodules or masses. No pleural effusion or pneum othorax seen bilaterally. 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 CHAVEZ harvesting is present. There are no greater than 1 cm hilar or mediastinal lymph nodes. Prominent but subcentimeter left h ilar lymph nodes. No cardiomegaly or pericardial effusion is seen. OTHER: Partial visualization of right internal jugular Mediport catheter terminating in SVC. LIVER/GB: Several calcified gallstones in the gallbladder. Occasional subcentimeter hypodense focus f or reference medial segment left hepatic lobe axial image 53 too small to further characterize presum ed benign. PANCREAS: No significant abnormality is seen. SPLEEN: No significant abnormality is seen. ADRENALS: No significant abnormality is seen. KIDNEYS: There are roughly 3 nonobstructing renal calculi, left kidney measuring 4 mm or smaller in s ize. There are 2 thin-walled cysts exophytic from the lower pole of right kidney near 2.0 cm in size. . BOWEL: Oral contrast reaches level of cecum making evaluation of distal bowel suboptimal. No suspicio us small or large bowel dilatation. Surgical sutures near splenic flexure on image 34 noted. Focal sl ight 8mm nodularity at this level seen best sagittal image 36 is nonspecific. There are multiple christiano tional sutures in the left colon extending posteriorly there are additional surgical clips. Some left -sided colonic diverticula are present. Mild wall thickening sigmoid colon axial image 106 favor prob ably due to poor distention as is concentric in appearance. GENITAL ORGANS: Normal size prostate with central calcification. A TURP type defect suspected superio r margin. LYMPH NODES: No greater than 1cm abdominal or pelvic lymph nodes are appreciated. OSSEOUS STRUCTURES: Multilevel spurring in the spine. Facet arthropathy lower lumbar levels. Mild alexander rowing of both hip joints with moderate acetabular spurring. OTHER: Accessory bilateral renal arteries. Moderate to severe mixed plaque infrarenal abdominal aorta extends into iliac artery branch vessels. Ectasia up to 3.0 cm noted axial image 84. Focal linear hy podensity axial image 87 could reflect small focal dissection. No inferior extension noted. Overlying vertical scarring in the midline of the anterior abdominal wall. IMPRESSION: There is one area of concern 8 mm nodularity near sutures at the level of splenic flexure . Finding should be correlated clinically and with old outside studies to determine need for further evaluation with repeat colonoscopy. No new mass or adenopathy identified otherwise to suggest recurr ent metastatic disease. Other findings as noted above need to be correlated clinically and with old o utside studies.
== END | disposition home or self-care (01) ==
LOC: RADCTMAIN 12:59
PROVIDERS: ATTEND Internal Medicine Hematology & Oncology
DX: K63.89 Other specified diseases of intestine (principal); C18.6 Malignant neoplasm of descending colon
CPT/HCPCS: 71260; 74177; Q9967

== ENCOUNTER → 2021-02-25 | Outpatient (CLI) | payer MEDICARE ==
--- NOTE | 2021-02-25 13:23 | CT ---
EXAMINATION TYPE: CT ChestAbdPelvis w con DATE OF EXAM: 02/25/2021 COMPARISON: Prior CT August 11, 2020 HISTORY: Follow up colon cancer; descending colon level. Completed chemotherapy February 18, 2021 CT DLP: 1484.5 mGycm. Automated Exposure Control for Dose Reduction was Utilized. CONTRAST: CT scan of the thorax, abdomen and pelvis is performed with IV Contrast, patient injected with 100 mL of Isovue 300. FINDINGS: LUNGS: There is bilateral peripheral reticulation and fibrotic change involving upper and lower lungs fairly moderate in appearance and showing significant interval progression from prior CT 6 months ag o. No concerning pulmonary nodules. 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 There are stable prominent but subcentimeter mediastinal and left hilar lymph nodes. No cardiomegaly or peric ardial effusion is seen. OTHER: Stable right internal jugular Mediport catheter. LIVER/GB: Several calcified gallstones in the gallbladder are redemonstrated. Tiny subcentimeter hypo dense focus for reference medial segment left hepatic lobe axial image 57 current study too small to further characterize presumed benign not significantly changed from prior. PANCREAS: No significant abnormality is seen. SPLEEN: No significant abnormality is seen. ADRENALS: No significant abnormality is seen. KIDNEYS: There are 2-3 nonobstructing renal calculi up to 5 mm redemonstrated. There are 2 thin-jessica d cysts exophytic from the lower pole of right kidney near 2.0 cm in size redemonstrated BOWEL: Oral contrast reaches level of rectum on current study. Oral contrast has passed through the s tomach making evaluation at this level without suboptimal. No suspicious small or large bowel dilatat ion. Surgical sutures near splenic flexure on coronal image 27 redemonstrated. Focal slight 8mm low d ense nodularity at this level is redemonstrated coronal image 27 along inferior aspect corresponding to sagittal image 97. This is not significant change suggesting benign etiology. There are multiple a dditional sutures in the left colon distal to this there axial image 83 extending posteriorly, there are additional surgical clips also redemonstrated. More prominent soft tissue nodularity at this leve l was noted for reference axial image 90 with 1.9 x 1.7 cm soft tissue nodule at site of 3 surgical c lips. The site is suspicious. Some left-sided colonic diverticula are present right before sutures. GENITAL ORGANS: Normal size prostate with central calcification. A TURP type defect once again suspec zoraida superior margin. LYMPH NODES: No greater than 1cm abdominal or pelvic lymph nodes are appreciated. OSSEOUS STRUCTURES: Multilevel spurring in the spine. Facet arthropathy lower lumbar levels. Mild alexander rowing of both hip joints with moderate acetabular spurring. OTHER: Accessory small caliber bilateral renal arteries are redemonstrated. Moderate to severe mixed plaque infrarenal abdominal aorta extends into iliac artery branch vessels similar to prior. Ectasia up to 3.0 cm redemonstrated. Focal linear hypodensity axial image 89 current study could reflect smal l chronic focal dissection. No inferior extension noted. Overlying Anterior vertical scar is redemons trated. IMPRESSION: Suspicious developing soft tissue nodularity in the left lower quadrant dependent portion of the paracolic/infracolic gutter near site of surgery and bowel reanastomosis is worrisome for arnel plastic recurrence. Consider PET CT follow-up to further evaluate.
== END | disposition home or self-care (01) ==
LOC: RADPROMAIN 10:19
PROVIDERS: ATTEND Internal Medicine Hematology & Oncology
DX: C18.9 Malignant neoplasm of colon, unspecified (principal)
CPT/HCPCS: 71260; 74177; J1642; Q9967